=== PATIENT | female | born 1935 | race Caucasian/White ===

== ENCOUNTER 2016-09-15 08:14 | Inpatient (IN) | payer MEDICARE, MEDICAID ==
[~2016-09-15 08:14] MED LIST: ALDACTONE25 M1 PO; ASPIR 8181 M1 PO; CALCIUM 600 PLU1 TAB PO; COREG25 M1 PO; CRESTOR10 M1 PO; HYDROCHLOROTHIA25 MG; NORVASC2.5 M1 PO; TENORMIN50 MG; TYLENOL500 MG PO; VITAMIN B12 PO; VOLTAREN GEL 1100 G1 TOP
[2016-09-15 09:07] LABS: BASO % 0.7 % (0-2); EOS % 2.7 % (0-7); EOSINOPHIL ABSOLUTE COUNT 0.1 tho/cmm (0.0-0.7); HCT-HEMATOCRIT 38.9 % (34.0-49.0); HGB-HEMOGLOBIN 13.2 gm/dl (12.0-15.5); IMMATURE GRANULOCYTES ABSOLUTE 0.01 tho/cmm (0-0.03); IMMATURE GRANULOCYTES PERCENT 0.2 % (0-0.3); LYMPH % 21.2 % (20-45); LYMPH ABSOLUTE COUNT 0.9 tho/cmm (0.8-4.5); MCH (MEAN CORPUSCULAR HGB) 30.5 pg (28.0-32.0); MCHC MEAN CORPUSCULAR HGB CONC 33.9 % (32.0-36.0); MCV (MEAN CELL VOLUME) 89.8 fl (82.0-96.0); MEAN PLATELET VOLUME 10.5 cmc (9.4-12.4); MONO % 10.7 % (0-12); MONOCYTE ABSOLUTE COUNT 0.5 tho/cmm (0.0-1.2); NEUTROPHIL ABSOLUTE COUNT 2.8 tho/cmm (1.6-8.0); NEUTROPHIL-AUTOMATED 2.8 tho/cmm (1.6-8.0); NEUTROPHILS % 64.5 % (40-80); PLATELET COUNT 116 tho/cmm (150-450); RED BLOOD COUNT 4.33 mil/cmm (4.00-5.20); RED CELL DISTRIBUTION WIDTH 13.1 % (12.4-16.4); WHITE BLOOD COUNT 4.4 tho/cmm (4.0-10.0)
[2016-09-15 09:19] LABS: INR 0.9 INR (0.9-1.1); PROTHROMBIN TIME 10.8 SECONDS (9.0-13.6)
[2016-09-15 11:15] LABS: HGB-HEMOGLOBIN 11.9 gm/dl (12.0-15.5); PH-VENOUS 7.33 Units (7.35-7.45)
[2016-09-15 12:00] LABS: CREATININE 0.91 mg/dl (0.67-1.17); eGFR VALUE FOR BLACK 68 mL/Min
[2016-09-15 12:12] LABS: INR 1.1 INR (0.9-1.1); PROTHROMBIN TIME 12.2 SECONDS (9.0-13.6)
[2016-09-15 12:21] LABS: BASO % 0.2 % (0-2); EOSINOPHIL ABSOLUTE COUNT 0.1 tho/cmm (0.0-0.7); HCT-HEMATOCRIT 36.6 % (34.0-49.0); HGB-HEMOGLOBIN 12.2 gm/dl (12.0-15.5); IMMATURE GRANULOCYTES ABSOLUTE 0.05 tho/cmm (0-0.03); IMMATURE GRANULOCYTES PERCENT 1.1 % (0-0.3); LYMPH % 45.6 % (20-45); LYMPH ABSOLUTE COUNT 2.1 tho/cmm (0.8-4.5); MCH (MEAN CORPUSCULAR HGB) 30.3 pg (28.0-32.0); MCHC MEAN CORPUSCULAR HGB CONC 33.3 % (32.0-36.0); MCV (MEAN CELL VOLUME) 90.8 fl (82.0-96.0); MONO % 4.4 % (0-12); MONOCYTE ABSOLUTE COUNT 0.2 tho/cmm (0.0-1.2); NEUTROPHIL ABSOLUTE COUNT 2.1 tho/cmm (1.6-8.0); NEUTROPHIL-AUTOMATED 2.1 tho/cmm (1.6-8.0); NEUTROPHILS % 46.7 % (40-80); PLATELET COUNT 108 tho/cmm (150-450); RED BLOOD COUNT 4.03 mil/cmm (4.00-5.20); RED CELL DISTRIBUTION WIDTH 13.3 % (12.4-16.4); WHITE BLOOD COUNT 4.6 tho/cmm (4.0-10.0)
[2016-09-15 12:23] LABS: ABG CO2 ARTERIAL 26 mmol/L (21-27); ARTERIAL BLD GAS O2 SATURATION 99 % (95-98); ARTERIAL BLOOD GAS PCO2 48 mmHg (32-45); ARTERIAL PO2 334 mmHg (70-100); BICARBONATE 25 mmol/L (21-28); BLOOD GAS BASE EXCESS -1 mM/L (-/+3); PH 7.34 Units (7.35-7.45)
[2016-09-15 12:34] LABS: ALBUMIN 2.8 g/dl (3.5-5.0); ALKALINE PHOSPHATASE 59 U/L (33-138); ALT/SGPT 67 U/L (12-78); ANION GAP 12 mmol/L (0-20); AST/SGOT 76 U/L (10-40); BILIRUBIN,TOTAL 0.4 mg/dl (0-1.5); BLOOD UREA NITROGEN 11 mg/dl (6-24); CALCIUM 9.1 mg/dl (8.5-10.5); CARBON DIOXIDE-VENOUS 25 mmol/L (22-32); CHLORIDE 110 mmol/l (96-110); CREATININE 0.98 mg/dl (0.50-1.10); GLUCOSE 272 mg/dL (70-110); SODIUM 143 mmol/L (135-145); eGFR VALUE FOR BLACK 62 mL/Min
[2016-09-15 15:43] LABS: ABG CO2 ARTERIAL 28 mmol/L (21-27); ARTERIAL BLD GAS O2 SATURATION 90 % (95-98); ARTERIAL BLOOD GAS PCO2 49 mmHg (32-45); BICARBONATE 27 mmol/L (21-28); BLOOD GAS BASE EXCESS 1 mM/L (-/+3); PH 7.35 Units (7.35-7.45)
[2016-09-15 15:46] LABS: ARTERIAL PO2 62 mmHg (70-100)
[2016-09-15 19:29] LABS: TSH-THYROID STIMULATING HORM. 5.16 uIU/ml (0.40-3.80)
[2016-09-16 02:29] LABS: BASO % 0.1 % (0-2); HGB-HEMOGLOBIN 11.9 gm/dl (12.0-15.5); IMMATURE GRANULOCYTES ABSOLUTE 0.01 tho/cmm (0-0.03); IMMATURE GRANULOCYTES PERCENT 0.1 % (0-0.3); LYMPH % 7.1 % (20-45); LYMPH ABSOLUTE COUNT 0.8 tho/cmm (0.8-4.5); MCH (MEAN CORPUSCULAR HGB) 29.9 pg (28.0-32.0); MCV (MEAN CELL VOLUME) 87.9 fl (82.0-96.0); MONO % 4.4 % (0-12); MONOCYTE ABSOLUTE COUNT 0.5 tho/cmm (0.0-1.2); NEUTROPHIL ABSOLUTE COUNT 9.9 tho/cmm (1.6-8.0); NEUTROPHIL-AUTOMATED 9.9 tho/cmm (1.6-8.0); NEUTROPHILS % 88.3 % (40-80); PLATELET COUNT 80 tho/cmm (150-450); RED BLOOD COUNT 3.98 mil/cmm (4.00-5.20); RED CELL DISTRIBUTION WIDTH 13.3 % (12.4-16.4)
[2016-09-16 02:33] LABS: INR 1.1 INR (0.9-1.1); PROTHROMBIN TIME 13.1 SECONDS (9.0-13.6)
[2016-09-16 02:35] LABS: WHITE BLOOD COUNT 11.2 tho/cmm (4.0-10.0)
[2016-09-16 04:56] LABS: BASO % 0.2 % (0-2); HCT-HEMATOCRIT 34.8 % (34.0-49.0); HGB-HEMOGLOBIN 11.8 gm/dl (12.0-15.5); IMMATURE GRANULOCYTES ABSOLUTE 0.04 tho/cmm (0-0.03); IMMATURE GRANULOCYTES PERCENT 0.3 % (0-0.3); LYMPH % 7.3 % (20-45); LYMPH ABSOLUTE COUNT 0.9 tho/cmm (0.8-4.5); MCH (MEAN CORPUSCULAR HGB) 29.9 pg (28.0-32.0); MCHC MEAN CORPUSCULAR HGB CONC 33.9 % (32.0-36.0); MCV (MEAN CELL VOLUME) 88.3 fl (82.0-96.0); MEAN PLATELET VOLUME 11.6 cmc (9.4-12.4); MONO % 5.4 % (0-12); MONOCYTE ABSOLUTE COUNT 0.7 tho/cmm (0.0-1.2); NEUTROPHIL ABSOLUTE COUNT 10.5 tho/cmm (1.6-8.0); NEUTROPHIL-AUTOMATED 10.5 tho/cmm (1.6-8.0); NEUTROPHILS % 86.8 % (40-80); PLATELET COUNT 97 tho/cmm (150-450); RED BLOOD COUNT 3.94 mil/cmm (4.00-5.20); RED CELL DISTRIBUTION WIDTH 13.5 % (12.4-16.4); WHITE BLOOD COUNT 12.1 tho/cmm (4.0-10.0)
[2016-09-16 05:07] LABS: ALBUMIN 2.9 g/dl (3.5-5.0); ALKALINE PHOSPHATASE 51 U/L (33-138); ALT/SGPT 54 U/L (12-78); ANION GAP 12 mmol/L (0-20); AST/SGOT 56 U/L (10-40); BLOOD UREA NITROGEN 15 mg/dl (6-24); CALCIUM 8.4 mg/dl (8.5-10.5); CARBON DIOXIDE-VENOUS 25 mmol/L (22-32); CHLORIDE 109 mmol/l (96-110); CREATININE 1.09 mg/dl (0.50-1.10); GLUCOSE 141 mg/dL (70-110); MAGNESIUM 1.8 mg/dl (1.3-2.6); POTASSIUM 3.3 mmol/L (3.7-5.1); SODIUM 143 mmol/L (135-145); eGFR VALUE FOR BLACK 54 mL/Min
[2016-09-16 05:16] LABS: BILIRUBIN,TOTAL 0.9 mg/dl (0-1.5)
[2016-09-16 05:18] LABS: ABG CO2 ARTERIAL 25 mmol/L (21-27); ARTERIAL BLD GAS O2 SATURATION 97 % (95-98); BICARBONATE 24 mmol/L (21-28); BLOOD GAS BASE EXCESS 2 mM/L (-/+3); PH 7.49 Units (7.35-7.45)
[2016-09-16 05:19] LABS: ARTERIAL BLOOD GAS PCO2 33 mmHg (32-45); ARTERIAL PO2 85 mmHg (70-100)
[2016-09-17 05:12] LABS: BASO % 0.3 % (0-2); EOS % 0.6 % (0-7); HCT-HEMATOCRIT 28.2 % (34.0-49.0); HGB-HEMOGLOBIN 9.4 gm/dl (12.0-15.5); IMMATURE GRANULOCYTES ABSOLUTE 0.02 tho/cmm (0-0.03); IMMATURE GRANULOCYTES PERCENT 0.3 % (0-0.3); LYMPH % 10.4 % (20-45); LYMPH ABSOLUTE COUNT 0.7 tho/cmm (0.8-4.5); MCH (MEAN CORPUSCULAR HGB) 29.9 pg (28.0-32.0); MCHC MEAN CORPUSCULAR HGB CONC 33.3 % (32.0-36.0); MCV (MEAN CELL VOLUME) 89.8 fl (82.0-96.0); MEAN PLATELET VOLUME 10.8 cmc (9.4-12.4); MONO % 6.1 % (0-12); MONOCYTE ABSOLUTE COUNT 0.4 tho/cmm (0.0-1.2); NEUTROPHIL ABSOLUTE COUNT 5.8 tho/cmm (1.6-8.0); NEUTROPHIL-AUTOMATED 5.8 tho/cmm (1.6-8.0); NEUTROPHILS % 82.3 % (40-80); PLATELET COUNT 68 tho/cmm (150-450); RED BLOOD COUNT 3.14 mil/cmm (4.00-5.20); RED CELL DISTRIBUTION WIDTH 13.9 % (12.4-16.4)
[2016-09-17 05:24] LABS: ANION GAP 11 mmol/L (0-20); BLOOD UREA NITROGEN 16 mg/dl (6-24); CALCIUM 7.8 mg/dl (8.5-10.5); CARBON DIOXIDE-VENOUS 27 mmol/L (22-32); CHLORIDE 108 mmol/l (96-110); CREATININE 0.97 mg/dl (0.50-1.10); GLUCOSE 112 mg/dL (70-110); POTASSIUM 3.4 mmol/L (3.7-5.1); SODIUM 143 mmol/L (135-145); eGFR VALUE FOR BLACK 63 mL/Min
[2016-09-17 05:27] LABS: ABG CO2 ARTERIAL 26 mmol/L (21-27); ARTERIAL BLD GAS O2 SATURATION 97 % (95-98); ARTERIAL BLOOD GAS PCO2 35 mmHg (32-45); ARTERIAL PO2 87 mmHg (70-100); BICARBONATE 25 mmol/L (21-28); BLOOD GAS BASE EXCESS 2 mM/L (-/+3); PH 7.47 Units (7.35-7.45)
[2016-09-18 00:13] LABS: ABG CO2 ARTERIAL 27 mmol/L (21-27); ARTERIAL BLD GAS O2 SATURATION 96 % (95-98); ARTERIAL BLOOD GAS PCO2 38 mmHg (32-45); BICARBONATE 26 mmol/L (21-28); BLOOD GAS BASE EXCESS 2 mM/L (-/+3); PH 7.44 Units (7.35-7.45)
[2016-09-18 00:14] LABS: ARTERIAL PO2 77 mmHg (70-100)
[2016-09-18 01:02] LABS: BASO % 0.3 % (0-2); EOS % 1.1 % (0-7); EOSINOPHIL ABSOLUTE COUNT 0.1 tho/cmm (0.0-0.7); HGB-HEMOGLOBIN 7.9 gm/dl (12.0-15.5); IMMATURE GRANULOCYTES ABSOLUTE 0.04 tho/cmm (0-0.03); IMMATURE GRANULOCYTES PERCENT 0.6 % (0-0.3); LYMPH % 12.5 % (20-45); LYMPH ABSOLUTE COUNT 0.8 tho/cmm (0.8-4.5); MCH (MEAN CORPUSCULAR HGB) 30.2 pg (28.0-32.0); MCV (MEAN CELL VOLUME) 90.1 fl (82.0-96.0); MEAN PLATELET VOLUME 10.2 cmc (9.4-12.4); MONO % 7.6 % (0-12); MONOCYTE ABSOLUTE COUNT 0.5 tho/cmm (0.0-1.2); NEUTROPHIL ABSOLUTE COUNT 4.8 tho/cmm (1.6-8.0); NEUTROPHIL-AUTOMATED 4.8 tho/cmm (1.6-8.0); NEUTROPHILS % 77.9 % (40-80); PLATELET COUNT 66 tho/cmm (150-450); RED BLOOD COUNT 2.62 mil/cmm (4.00-5.20); RED CELL DISTRIBUTION WIDTH 13.7 % (12.4-16.4); WHITE BLOOD COUNT 6.2 tho/cmm (4.0-10.0)
[2016-09-18 01:04] LABS: HCT-HEMATOCRIT 23.6 % (34.0-49.0); MCHC MEAN CORPUSCULAR HGB CONC 33.5 % (32.0-36.0)
[2016-09-18 05:10] LABS: BASO % 0.3 % (0-2); EOSINOPHIL ABSOLUTE COUNT 0.1 tho/cmm (0.0-0.7); IMMATURE GRANULOCYTES ABSOLUTE 0.04 tho/cmm (0-0.03); IMMATURE GRANULOCYTES PERCENT 0.7 % (0-0.3); LYMPH % 11.4 % (20-45); LYMPH ABSOLUTE COUNT 0.7 tho/cmm (0.8-4.5); MCH (MEAN CORPUSCULAR HGB) 30.3 pg (28.0-32.0); MCV (MEAN CELL VOLUME) 90.2 fl (82.0-96.0); MEAN PLATELET VOLUME 11.1 cmc (9.4-12.4); MONO % 8.6 % (0-12); MONOCYTE ABSOLUTE COUNT 0.5 tho/cmm (0.0-1.2); NEUTROPHIL ABSOLUTE COUNT 4.6 tho/cmm (1.6-8.0); NEUTROPHIL-AUTOMATED 4.6 tho/cmm (1.6-8.0); PLATELET COUNT 76 tho/cmm (150-450); RED BLOOD COUNT 2.64 mil/cmm (4.00-5.20); RED CELL DISTRIBUTION WIDTH 13.9 % (12.4-16.4); WHITE BLOOD COUNT 5.9 tho/cmm (4.0-10.0)
[2016-09-18 05:16] LABS: ANION GAP 11 mmol/L (0-20); BLOOD UREA NITROGEN 13 mg/dl (6-24); CALCIUM 7.7 mg/dl (8.5-10.5); CARBON DIOXIDE-VENOUS 27 mmol/L (22-32); CHLORIDE 109 mmol/l (96-110); GLUCOSE 99 mg/dL (70-110); POTASSIUM 3.6 mmol/L (3.7-5.1); SODIUM 143 mmol/L (135-145); eGFR VALUE FOR BLACK 79 mL/Min
[2016-09-18 05:24] LABS: HCT-HEMATOCRIT 23.8 % (34.0-49.0); MCHC MEAN CORPUSCULAR HGB CONC 33.6 % (32.0-36.0)
[2016-09-19 05:06] LABS: BASO % 0.4 % (0-2); EOS % 2.5 % (0-7); EOSINOPHIL ABSOLUTE COUNT 0.1 tho/cmm (0.0-0.7); HGB-HEMOGLOBIN 7.8 gm/dl (12.0-15.5); IMMATURE GRANULOCYTES ABSOLUTE 0.05 tho/cmm (0-0.03); LYMPH % 11.5 % (20-45); LYMPH ABSOLUTE COUNT 0.6 tho/cmm (0.8-4.5); MCH (MEAN CORPUSCULAR HGB) 29.8 pg (28.0-32.0); MCHC MEAN CORPUSCULAR HGB CONC 33.1 % (32.0-36.0); MCV (MEAN CELL VOLUME) 90.1 fl (82.0-96.0); MEAN PLATELET VOLUME 10.3 cmc (9.4-12.4); MONO % 9.6 % (0-12); MONOCYTE ABSOLUTE COUNT 0.5 tho/cmm (0.0-1.2); NEUTROPHIL ABSOLUTE COUNT 3.9 tho/cmm (1.6-8.0); NEUTROPHIL-AUTOMATED 3.9 tho/cmm (1.6-8.0); PLATELET COUNT 104 tho/cmm (150-450); RED BLOOD COUNT 2.62 mil/cmm (4.00-5.20); RED CELL DISTRIBUTION WIDTH 13.6 % (12.4-16.4); WHITE BLOOD COUNT 5.1 tho/cmm (4.0-10.0)
[2016-09-19 05:11] LABS: HCT-HEMATOCRIT 23.6 % (34.0-49.0)
[2016-09-19 05:29] LABS: ANION GAP 10 mmol/L (0-20); BLOOD UREA NITROGEN 10 mg/dl (6-24); CALCIUM 7.8 mg/dl (8.5-10.5); CARBON DIOXIDE-VENOUS 28 mmol/L (22-32); CHLORIDE 108 mmol/l (96-110); CREATININE 0.67 mg/dl (0.50-1.10); GLUCOSE 98 mg/dL (70-110); POTASSIUM 3.7 mmol/L (3.7-5.1); SODIUM 142 mmol/L (135-145); eGFR VALUE FOR BLACK >90 mL/Min
[2016-09-21 07:52] LABS: HGB-HEMOGLOBIN 7.6 gm/dl (12.0-15.5); MCV (MEAN CELL VOLUME) 90.1 fl (82.0-96.0); RED CELL DISTRIBUTION WIDTH 13.5 % (12.4-16.4)
[2016-09-21 08:26] LABS: HCT-HEMATOCRIT 22.7 % (34.0-49.0)
[2016-09-21 14:56] LABS: HCT-HEMATOCRIT 24.4 % (34.0-49.0); HGB-HEMOGLOBIN 8.1 gm/dl (12.0-15.5); MCV (MEAN CELL VOLUME) 90.7 fl (82.0-96.0); RED CELL DISTRIBUTION WIDTH 13.6 % (12.4-16.4)
[2016-09-21 21:04] LABS: HGB-HEMOGLOBIN 7.7 gm/dl (12.0-15.5); MCV (MEAN CELL VOLUME) 90.9 fl (82.0-96.0); RED CELL DISTRIBUTION WIDTH 13.6 % (12.4-16.4)
[2016-09-21 21:43] LABS: HCT-HEMATOCRIT 22.9 % (34.0-49.0)
[2016-09-22 01:52] LABS: HGB-HEMOGLOBIN 7.1 gm/dl (12.0-15.5); MCV (MEAN CELL VOLUME) 91.2 fl (82.0-96.0); RED CELL DISTRIBUTION WIDTH 13.9 % (12.4-16.4)
[2016-09-22 02:04] LABS: HCT-HEMATOCRIT 21.7 % (34.0-49.0)
[2016-09-22 04:40] LABS: BASO % 0.6 % (0-2); EOS % 5.5 % (0-7); EOSINOPHIL ABSOLUTE COUNT 0.3 tho/cmm (0.0-0.7); HGB-HEMOGLOBIN 7.2 gm/dl (12.0-15.5); IMMATURE GRANULOCYTES PERCENT 1.8 % (0-0.3); LYMPH % 14.6 % (20-45); LYMPH ABSOLUTE COUNT 0.8 tho/cmm (0.8-4.5); MCH (MEAN CORPUSCULAR HGB) 30.3 pg (28.0-32.0); MCV (MEAN CELL VOLUME) 91.6 fl (82.0-96.0); MONO % 9.1 % (0-12); MONOCYTE ABSOLUTE COUNT 0.5 tho/cmm (0.0-1.2); NEUTROPHIL ABSOLUTE COUNT 3.7 tho/cmm (1.6-8.0); NEUTROPHIL-AUTOMATED 3.7 tho/cmm (1.6-8.0); NEUTROPHILS % 68.4 % (40-80); RED BLOOD COUNT 2.38 mil/cmm (4.00-5.20); WHITE BLOOD COUNT 5.4 tho/cmm (4.0-10.0)
[2016-09-22 04:50] LABS: HCT-HEMATOCRIT 21.8 % (34.0-49.0); PLATELET COUNT 174 tho/cmm (150-450)
[2016-09-22 05:22] LABS: ANION GAP 10 mmol/L (0-20); BLOOD UREA NITROGEN 12 mg/dl (6-24); CALCIUM 7.8 mg/dl (8.5-10.5); CARBON DIOXIDE-VENOUS 32 mmol/L (22-32); CHLORIDE 105 mmol/l (96-110); GLUCOSE 119 mg/dL (70-110); SODIUM 144 mmol/L (135-145)
[2016-09-22 05:24] LABS: CREATININE 0.68 mg/dl (0.50-1.10); eGFR VALUE FOR BLACK >90 mL/Min
[2016-09-23 07:04] LABS: BASO % 0.4 % (0-2); EOS % 6.3 % (0-7); EOSINOPHIL ABSOLUTE COUNT 0.3 tho/cmm (0.0-0.7); HGB-HEMOGLOBIN 7.5 gm/dl (12.0-15.5); IMMATURE GRANULOCYTES ABSOLUTE 0.05 tho/cmm (0-0.03); LYMPH % 16.3 % (20-45); LYMPH ABSOLUTE COUNT 0.8 tho/cmm (0.8-4.5); MCH (MEAN CORPUSCULAR HGB) 30.4 pg (28.0-32.0); MCHC MEAN CORPUSCULAR HGB CONC 32.9 % (32.0-36.0); MCV (MEAN CELL VOLUME) 92.3 fl (82.0-96.0); MEAN PLATELET VOLUME 9.7 cmc (9.4-12.4); MONO % 8.1 % (0-12); MONOCYTE ABSOLUTE COUNT 0.4 tho/cmm (0.0-1.2); NEUTROPHIL ABSOLUTE COUNT 3.5 tho/cmm (1.6-8.0); NEUTROPHIL-AUTOMATED 3.5 tho/cmm (1.6-8.0); NEUTROPHILS % 67.9 % (40-80); PLATELET COUNT 185 tho/cmm (150-450); RED BLOOD COUNT 2.47 mil/cmm (4.00-5.20); RED CELL DISTRIBUTION WIDTH 14.1 % (12.4-16.4); WHITE BLOOD COUNT 5.1 tho/cmm (4.0-10.0)
[2016-09-23 07:07] LABS: HCT-HEMATOCRIT 22.8 % (34.0-49.0)
[2016-09-23 07:12] LABS: ANION GAP 7 mmol/L (0-20); BLOOD UREA NITROGEN 9 mg/dl (6-24); CALCIUM 7.9 mg/dl (8.5-10.5); CARBON DIOXIDE-VENOUS 32 mmol/L (22-32); CHLORIDE 106 mmol/l (96-110); CREATININE 0.56 mg/dl (0.50-1.10); GLUCOSE 92 mg/dL (70-110); POTASSIUM 3.3 mmol/L (3.7-5.1); SODIUM 142 mmol/L (135-145); eGFR VALUE FOR BLACK >90 mL/Min
[2016-09-24 04:48] LABS: BASO % 0.4 % (0-2); EOS % 5.7 % (0-7); EOSINOPHIL ABSOLUTE COUNT 0.3 tho/cmm (0.0-0.7); HGB-HEMOGLOBIN 7.6 gm/dl (12.0-15.5); IMMATURE GRANULOCYTES ABSOLUTE 0.08 tho/cmm (0-0.03); IMMATURE GRANULOCYTES PERCENT 1.6 % (0-0.3); LYMPH % 16.8 % (20-45); LYMPH ABSOLUTE COUNT 0.8 tho/cmm (0.8-4.5); MCH (MEAN CORPUSCULAR HGB) 29.9 pg (28.0-32.0); MCHC MEAN CORPUSCULAR HGB CONC 32.2 % (32.0-36.0); MCV (MEAN CELL VOLUME) 92.9 fl (82.0-96.0); MEAN PLATELET VOLUME 9.3 cmc (9.4-12.4); MONO % 8.8 % (0-12); MONOCYTE ABSOLUTE COUNT 0.4 tho/cmm (0.0-1.2); NEUTROPHIL ABSOLUTE COUNT 3.3 tho/cmm (1.6-8.0); NEUTROPHIL-AUTOMATED 3.3 tho/cmm (1.6-8.0); NEUTROPHILS % 66.7 % (40-80); PLATELET COUNT 204 tho/cmm (150-450); RED BLOOD COUNT 2.54 mil/cmm (4.00-5.20); RED CELL DISTRIBUTION WIDTH 14.2 % (12.4-16.4); WHITE BLOOD COUNT 4.9 tho/cmm (4.0-10.0)
[2016-09-24 04:54] LABS: HCT-HEMATOCRIT 23.6 % (34.0-49.0)
[2016-09-24 04:56] LABS: ANION GAP 9 mmol/L (0-20); BLOOD UREA NITROGEN 6 mg/dl (6-24); CALCIUM 8.2 mg/dl (8.5-10.5); CARBON DIOXIDE-VENOUS 30 mmol/L (22-32); CHLORIDE 108 mmol/l (96-110); GLUCOSE 96 mg/dL (70-110); POTASSIUM 3.9 mmol/L (3.7-5.1); SODIUM 143 mmol/L (135-145); eGFR VALUE FOR BLACK >90 mL/Min
[2016-09-25 04:35] LABS: BASO % 0.4 % (0-2); EOS % 5.3 % (0-7); EOSINOPHIL ABSOLUTE COUNT 0.3 tho/cmm (0.0-0.7); HCT-HEMATOCRIT 26.1 % (34.0-49.0); HGB-HEMOGLOBIN 8.4 gm/dl (12.0-15.5); IMMATURE GRANULOCYTES ABSOLUTE 0.08 tho/cmm (0-0.03); IMMATURE GRANULOCYTES PERCENT 1.5 % (0-0.3); LYMPH % 17.2 % (20-45); LYMPH ABSOLUTE COUNT 0.9 tho/cmm (0.8-4.5); MCHC MEAN CORPUSCULAR HGB CONC 32.2 % (32.0-36.0); MCV (MEAN CELL VOLUME) 93.2 fl (82.0-96.0); MEAN PLATELET VOLUME 9.6 cmc (9.4-12.4); MONO % 5.9 % (0-12); MONOCYTE ABSOLUTE COUNT 0.3 tho/cmm (0.0-1.2); NEUTROPHIL ABSOLUTE COUNT 3.7 tho/cmm (1.6-8.0); NEUTROPHIL-AUTOMATED 3.7 tho/cmm (1.6-8.0); NEUTROPHILS % 69.7 % (40-80); PLATELET COUNT 248 tho/cmm (150-450); RED CELL DISTRIBUTION WIDTH 14.3 % (12.4-16.4); WHITE BLOOD COUNT 5.3 tho/cmm (4.0-10.0)
[2016-09-25 04:46] LABS: ANION GAP 11 mmol/L (0-20); BLOOD UREA NITROGEN 8 mg/dl (6-24); CALCIUM 8.7 mg/dl (8.5-10.5); CARBON DIOXIDE-VENOUS 29 mmol/L (22-32); CHLORIDE 105 mmol/l (96-110); CREATININE 0.57 mg/dl (0.50-1.10); GLUCOSE 100 mg/dL (70-110); POTASSIUM 3.7 mmol/L (3.7-5.1); SODIUM 141 mmol/L (135-145); eGFR VALUE FOR BLACK >90 mL/Min
--- NOTE | 2016-09-27 11:39 | NUR ---
PT IN CHAIR, SISTER AT BEDSIDE. BOTH UPSET THAT CANT LEAVE RIGHT NOW DOCTOR "TOLD ME I COULD LEAVE." INFORMED SHE WILL GO BUT WE NEED TO GET HER DC ARRANGED. PT'S NURSE, DL, AWARE PT WANTS TO LEAVE [place]. PT AND SISTER CALMER AFTER EXPRESSED THEIR FEELINGS. PLAN DC TO HOME WITH [facility]. PT WILL FU WITH PULMONARY TESTS AND ONCOLOGY IN A FEW WEEKS. PT VERBALIZES UNDERSTANDING OF WHY PULMONARY TEST WAS NOT DONE HERE YESTERDAY. SUPPORT GIVEN TO PT AND SISTER.
[2016-09-27] MEDS ORDERED: ELIQUIS5 M1 PO ×2 (11:51→11:52)
== END 2016-09-27 12:50 | disposition home health service (06) | DRG 981 ==
LOC: CTSCAN 08:14 → SHSB 08:17 → CCU 10:55 → CTSCAN 17:45 → CCU 17:46 → PACU 09-20 13:28 → CCU 09-20 14:20 → 5WF 09-22 17:50
PROVIDERS: Family Medicine; Internal Medicine Critical Care Medicine; Internal Medicine Pulmonary Disease; Radiology Diagnostic Radiology; Registered Nurse; ADMIT Internal Medicine
PROC: 5A1945Z Respiratory Ventilation, 24-96 Consecutive Hours (ICD-10-PCS; 2016-09-15)
PROC: 0BBK3ZX Excision of Right Lung, Percutaneous Approach, Diagnostic (ICD-10-PCS; 2016-09-15)
PROC: 0BH17EZ Insertion of Endotracheal Airway into Trachea, Via Natural or Artificial Opening (ICD-10-PCS; 2016-09-15)
PROC: 02HV33Z Insertion of Infusion Device into Superior Vena Cava, Percutaneous Approach (ICD-10-PCS; 2016-09-16)
PROC: 0BCN4ZZ Extirpation of Matter from Right Pleura, Percutaneous Endoscopic Approach (ICD-10-PCS; principal; 2016-09-20)
PROC: 0W9940Z Drainage of Right Pleural Cavity with Drainage Device, Percutaneous Endoscopic Approach (ICD-10-PCS; 2016-09-20)
DX: I97.121 Postprocedural cardiac arrest following other surgery (principal); J96.01 Acute respiratory failure with hypoxia; I63.9 Cerebral infarction, unspecified; G81.91 Hemiplegia, unspecified affecting right dominant side; I82.621 Acute embolism and thrombosis of deep veins of right upper extremity; C34.31 Malignant neoplasm of lower lobe, right bronchus or lung; D62 Acute posthemorrhagic anemia; J95.831 Postprocedural hemorrhage of a respiratory system organ or structure following other procedure; E78.5 Hyperlipidemia, unspecified; I25.10 Atherosclerotic heart disease of native coronary artery without angina pectoris; I10 Essential (primary) hypertension; Y83.8 Other surgical procedures as the cause of abnormal reaction of the patient, or of later complication, without mention of misadventure at the time of the procedure; Y92.238 Other place in hospital as the place of occurrence of the external cause; F32.9 Major depressive disorder, single episode, unspecified; Z90.710 Acquired absence of both cervix and uterus; Z90.49 Acquired absence of other specified parts of digestive tract; Z90.722 Acquired absence of ovaries, bilateral; Z86.73 Personal history of transient ischemic attack (TIA), and cerebral infarction without residual deficits; Z85.3 Personal history of malignant neoplasm of breast; Z85.42 Personal history of malignant neoplasm of other parts of uterus
CPT/HCPCS: C1751; C9113; J0360; J0690; J1644; J1650; J2060; J2270; J2405; J2543; J3010; J3480; J7030; J7050; Q9967